=== PATIENT | female | born 1995 | race Caucasian/White ===

== ENCOUNTER 2021-09-11 07:39 | Inpatient (IN) ==
[2021-09-11] MEDS ORDERED: OXYTOCIN 30 UNITS/500 ML BAG IV PRN ×3 (07:57→21:58)
[2021-09-11] MEDS ORDERED: PENICILLIN G POTASSIUM 6 MU in DEXTROSE 5% 250 ML IV ONE (08:20)
--- NOTE | 2021-09-11 08:21 | History & Physical Report ---
Date of Service September 11, 2021 Assessment & Plan (1) Encounter for induction of labor: Plan: 25 year old coming in for induction of labor. -A+, GBS+, Rubella Immune. -Started oxytocin and LR. Giving penicillin for GBS+ status. -Anesthesia consulted for labor pain. -Will continue to monitor heart tracings and progress. Admission and Anticipated Discharge Date Admission Date: September 11, 2021 History of Present Illness Primary Care Provider: NO PCP 42 weeks and 3 days confirmed via LMP. Here for induction of labor. No complications with this . Has been attending OB appointments regularly. Currently taking vitamin and probiotic. Contractions: Denies Fluid leakage: Denies Blood: mild from olvera bulb placement last night. movement: Active Labs: - A+ - Antibody screen: Negative - Hgb: 13.2 - Hct: 40.0 - WBC: 12.24 - Plt: 273 - Rubella: Immune - RPR: Nonreactive - Gonorrhea: Not detected - Chlamydia: Not detected - HIV: Negative - HbSAg: Negative - GBS: Positive - Glucose tolerance x2: 88, 116 Allergies Allergy/AdvReac Type Severity Reaction Status Date / Time No Known Allergies Allergy Verified 09/10/21 19:22 Home Medications Medication Instructions Recorded Confirmed Type prenat.vits,giuliano,rvt-[id number]-otpdc 1 tab PO DAILY 04/07/21 09/11/21 History lactobacillus combination no.4 3 3,000 mmu cells PO DAILY 09/10/21 09/11/21 History billion cell capsule (Probiotic) Patient History Medical History No known health problems Surgical History No history of previous surgery Family History Father Leukemia Mother Heart disease Social History (Updated 09/11/21 @ 08:28 by Rebeca Chirinos RN) Smoking Status: Never smoker Second Hand Exposure: No; Do You Dip or Chew Tobacco: No; Hx Alcohol Use: No Hx Substance Use: No Preferred Language: Russian Communication Ability: Effective Visual Impairment: No Limitations Hearing Ability: Normal Informatics Application Analyst Required: No Beliefs That Will Affect Care: None marital status: Single marital status details: Greta (30) [phone] Current Living Situation: Significant Other Current Living Situation Comment: lives with FOB, 1 dog, 1 cat, fob to change litter current occupational status: unemployed Other Information That Helps Us Care for You: No Feels Safe at Home: Yes Safety Concerns: Feels Safe At This Time Do you think of yourself as: straight/heterosexual Gender Identity: Female Assistive Devices: None OB History Primigravid, as stated above. Review of Systems All systems reviewed & are unremarkable except as noted in HPI & below Physical Exam Physical Exam: General: Alert, oriented. No acute distress. Cardiac: Regular rate and rhythm, no murmurs/rubs/gallops. Respiratory: Clear to auscultation bilaterally a/p, no wheezes/rales/rhonchi. No increased work of breathing. Symmetrical chest rise. No respiratory distress. Pelvic: Dilation 4cm; Effacement 90; Station -[address] Joseph Lower Extremities: No lower extremity edema or swelling. No deep calf pain. Kenneth's negative bilaterally Baseline: 140 Variability: moderate Accelerations: Present Decelerations: Not present Genitourinary: OB Exam Abdomen: + vertex, + estimated weight (6-7 pounds) and + irregular contractions OB Exam Monitor Tracing: + external FHT monitor used, + external uterine monitor used, + category I and + normal FHT variability Results & Data ([facility]) Vital Signs (Past 12 Hours) Vital Signs Pulse BP 09/11/21 07:53 96 H 118/81 Supervising Physician Co-Signing Physician Notes Resident Physician Supervision Note: I interviewed and examined the patient. Discussed with Dr. Mcdaniels and agree with findings and plan as documented in the note. Any exceptions or clarifications are listed here: [None] Documented By: Lena Paz MD, FACOG Resident Activity Tracking Resident Involvement: Resident Care Provided Care Provided: OB Delivery
[2021-09-11 09:06] LABS: Hemoglobin 13.2 g/dL (12.0-16.0); Mean Corpuscular Hemoglobin 31.9 pg (25-34); Mean Corpuscular Volume 96.6 fL (80-100); Platelet Count 273 K/uL (130-400); RDW Coefficient of Variation 14.9 % (11.5-14.5); RDW Standard Deviation 52.7 fL (36.4-46.3); Red Blood Count 4.14 M/uL (4.2-5.4); White Blood Count 12.24 K/uL (4.8-10.8)
[2021-09-11] MEDS: LACTATED RINGER'S 1,000 ML IV PRN ×2 (09:42→15:05)
[2021-09-11] MEDS ORDERED: BUPIVACAINE 0.25% 30 ML VIAL ONE (13:31)
[2021-09-11] MEDS ORDERED: SODIUM CHLORIDE 0.9% INJ 10 ML VIAL ONE (13:31)
[2021-09-11] MEDS ORDERED: ePHEDrine sulfate 50 MG/ML AMP ONE (13:31)
[2021-09-11] MEDS ORDERED: fentaNYL 2MCG/ML ROPIVACAINE 1.25MG/ML 100 ML BAG EPI ONE (13:32)
[2021-09-11] MEDS ORDERED: fentaNYL citrate 100 MCG/2 ML VIAL ONE (13:32)
[2021-09-11] MEDS ORDERED: diphenhydrAMINE 50 MG/ML VIAL IV PRN (14:02)
[2021-09-11] MEDS ORDERED: NALBUPHINE HCL INJ 10 MG/ML AMP IV PRN (14:02)
[2021-09-11] MEDS ORDERED: NALOXONE HCL 0.4 MG/1 ML VIAL/CARP IV PRN (14:02)
[2021-09-11] MEDS ORDERED: NALOXONE HCL 1 MG in SODIUM CHLORIDE 0.9% 1000ML 1,000 ML IV PRN (14:02)
[2021-09-11] MEDS: PENICILLIN G POTASSIUM 3 MU in DEXTROSE 5% 100 ML IV PRN ×2 (14:02→18:10)
[2021-09-11] MEDS ORDERED: fentaNYL 2MCG/ML ROPIVACAINE 1.25MG/ML 100 ML BAG EPI PRN (14:02)
[2021-09-11] MEDS ORDERED: ONDANSETRON INJ 2 MG/ML 2 ML VIAL IV PRN (14:02)
[2021-09-11] MEDS ORDERED: ePHEDrine sulfate 50 MG/ML AMP IV PRN (14:02)
--- NOTE | 2021-09-11 14:02 | Anesthesiology Consultation ---
Date of Service September 11, 2021 Assessment & Plan (1) Encounter for pre-operative examination: Chart Review Chart Review: Patient NOT seen in Pre Admission Testing and Acceptable Risk for Labor Epidural Consults Requested none ASA ASA2 Proposed Anesthesia Anesthesia Type: Labor Epidural Risk / Benefits Reviewed With: PT / POA / Parent / Guardian, Accepts Plan and Informed Consent Obtained History Height/Weight Height: 5 ft 2 in Weight: 73.936 kg Allergies Allergy/AdvReac Type Severity Reaction Status Date / Time No Known Allergies Allergy Verified 09/10/21 19:22 Medications Home Medications Medication Instructions Recorded Confirmed Last Taken prenat.vits,giuliano,myc-fsyt-oqzao 1 tab PO DAILY 04/07/21 09/11/21 09/10/21 19:22 lactobacillus combination no.4 3 3,000 mmu cells PO DAILY 09/10/21 09/11/21 09/10/21 08:00 billion cell capsule (Probiotic) Active Medications Generic Name Dose Route Start Last Admin Trade Name Freq PRN Reason Stop Dose Admin Oxytocin 30 units in 500 mls @ 10 mls/hr 09/11/21 08:08 09/11/21 12:06 Pitocin IV 09/13/21 08:07 0.6 units/hr .Q24H PRN 10 mls/hr Labor Induction/Augmentation Titration Protocol 0.6 UNITS/HR Lactated Ringer's 1,000 mls @ 125 mls/hr 09/11/21 07:57 09/11/21 13:26 Lr IV 09/13/21 07:56 999 mls/hr .Q8H PRN Infusion L&D Protocol Protocol Penicillin G Potassium 3 mu/ 106 mls @ 100 mls/hr 09/11/21 11:11 09/11/21 14:02 Dextrose IV 09/21/21 11:10 100 mls/hr Q4H PRN Administration GBS(+) Until Delivery Past Medical History Medical History (Updated 09/11/21 @ 14:02 by Evans Beck MD) No known health problems Exercise / Class Metabolic Activity II 4-5 Yardwork/Stairs/Walk up hill Past Family History Family History Father Leukemia Mother Heart disease Past Surgical History Surgical History No history of previous surgery Past Anesthesia History No Hx of Anesthesia Complications and No Family Hx of Anesthesia Complications History of PONV No Hx of PONV and No Hx of Motion Sickness Social History Smoking Status: Never smoker Do You Dip or Chew Tobacco: No Hx Alcohol Use: No Hx Substance Use: No substance use type: does not use Physical Exam Vital Signs Last Vital Signs Temp 36.5 C 09/11/21 11:33 Pulse 102 H 09/11/21 13:59 Resp 20 09/11/21 12:45 BP 107/71 09/11/21 13:59 Pulse Ox 99 09/11/21 13:57 ENMT Mouth: no dentition abnormality Thyromental Distance: > or= 3.5 Finger Breadths Mallampati Class: II Neck normal visual inspection Respiratory normal respiratory effort Auscultation: lungs clear to auscultation bilaterally Cardiovascular Rate/Rhythm: regular rate and regular rhythm Psychiatric Orientation: alert Testing Laboratory Results 09/11/21 08:37
[2021-09-11] MEDS ORDERED: ACETAMINOPHEN 325 MG TAB PO PRN ×2 (19:10→21:58)
[2021-09-11] MEDS ORDERED: HYDROCORTISONE ACETATE 25 MG SUPP PR PRN (21:58)
[2021-09-11] MEDS ORDERED: SUPERCREAM 0.870% 15 GM JAR EXT PRN (21:58)
[2021-09-11] MEDS ORDERED: bisacodyL 10 MG SUPP PR PRN (21:58)
[2021-09-11] MEDS ORDERED: BENZOCAINE 20% AER SPR 82.5 GM CAN EXT PRN (21:58)
[2021-09-11] MEDS ORDERED: oxyCODONE/ACETAMINOPHEN 5mg/325mg TAB PO PRN (21:58)
[2021-09-11] MEDS ORDERED: DIPHTHERIA/TETANUS/PERTUSSIS 0.5 ML SYR/VIAL IM ONE (21:58)
--- NOTE | 2021-09-11 22:02 | Delivery Summary ---
Vaginal Delivery Summary Date of Service September 11, 2021 Vaginal Delivery Summary and 1st Degree LAC Patient is a 25-year-old 1 P0 white female who presents for induction of labor because of postterm at 41-3/7 weeks. She had a cervical balloon placed the night prior to her induction. Pitocin augmentation of her labor was begun and she requested epidural analgesia. Membranes were ruptured for minimal amount of fluid. She progressed to full dilation and pushed effectively over intact perineum for delivery of a viable female . A loose nuchal cord x2 was reduced prior to delivering the rest of the infant. The was vigorous upon delivery. Cord was clamped and cut after 1 minute. She was placed on the mother's abdomen for further attention and drying. The placenta was then expressed intact with a three-vessel cord. A first-degree perineal laceration was repaired with 3-0 chromic in the usual fashion. Bilateral superficial labial lacerations were not bleeding and therefore not repaired. EBL was 200 cc. bleeding was controlled with dilute Pitocin. Mother and infant were doing well after delivery. [facility] [place] Vaginal Delivery Charge Delivery Type Details: and 1st Degree LAC
[2021-09-12] MEDS: IBUPROFEN 600 MG TAB PO PRN ×5 (04:42→23:22)
--- NOTE | 2021-09-12 06:30 | Obstetrical Progress Note ---
Date of Service <Rolf Mcdaniels DO - Last Filed: 09/12/21 07:08> September 12, 2021 Assessment & Plan <Rolf Mcdaniels DO - Last Filed: 09/12/21 07:08> (1) Encounter for care and examination after delivery: 25 yo post day 1 from vaginal delivery, doing well. -Continue routine post care. - vital signs reviewed and WNL. (Tmax 37.3) -Blood type A+, GBS +, Rubella Immune -Encourage ambulation, monitor and control pain with Motrin, tylenol PRN, resume regular diet, monitor lochia. -encourage breast feeding. -hemoglobin 13.1 <Lena Paz MD, FACOG - Last Filed: 09/12/21 07:26> (1) Encounter for care and examination after delivery: Subjective <Rolf Mcdaniels DO - Last Filed: 09/12/21 07:08> Ambulation: ambulating normally Voiding: no voiding problems Passing Gas:: Yes Diet Tolerance:: regular diet Lochia:: Small Feeding Type:: breast feeding Current Pain Level(1-10): 0 Review of Systems Denies fever, chills, sweats Denies shortness of breath, difficulty breathing, chest pain, palpitations, chest pressure. Denies breast pain. Denies dysuria. Denies headache or changes in vision Physical Exam <Rolf Mcdaniels DO - Last Filed: 09/12/21 07:08> General: Alert, oriented. No acute distress. Uterus: Uterine fundus firm, palpable at umbilicus. Lower Extremities: No lower extremity edema or swelling. No deep calf pain. Kenneth's negative bilaterally Results & Data ([facility]) <Rolf Mcdaniels DO - Last Filed: 09/12/21 07:08> Vital Signs (Past 12 Hours) Vital Signs Temp Pulse Pulse Resp BP BP Pulse Ox 09/12/21 04:25 37.1 C 98 H 16 132/95 98 09/12/21 00:50 36.7 C 110 H 17 117/80 97 09/12/21 00:05 109 H 118/69 09/11/21 23:50 129 H 112/65 09/11/21 23:35 126 H 123/83 09/11/21 23:20 126 H 123/82 09/11/21 23:05 123 H 121/83 09/11/21 22:50 98 H 117/77 09/11/21 22:35 104 H 118/78 09/11/21 22:20 107 H 137/74 09/11/21 22:05 105 H 127/72 09/11/21 21:50 114 H 119/65 09/11/21 21:35 108 H 115/65 09/11/21 21:22 113 H 97 09/11/21 21:17 118 H 96 09/11/21 21:12 119 H 96 09/11/21 21:07 123 H 97 09/11/21 21:05 109 H 121/75 09/11/21 21:02 144 H 98 09/11/21 20:57 128 H 97 09/11/21 20:52 121 H 97 09/11/21 20:50 129 H 115/67 09/11/21 20:47 134 H 97 09/11/21 20:42 119 H 97 09/11/21 20:37 114 H 95 09/11/21 20:35 113 H 108/65 09/11/21 20:34 36.7 C 18 09/11/21 20:32 113 H 95 09/11/21 20:27 111 H 95 09/11/21 20:25 117 H 94 09/11/21 20:22 116 H 95 09/11/21 20:20 118 H 100/57 L 09/11/21 20:17 116 H 94 09/11/21 20:12 117 H 97 09/11/21 20:07 136 H 96 09/11/21 20:06 126 H 127/77 09/11/21 20:02 121 H 96 09/11/21 19:57 120 H 97 09/11/21 19:52 114 H 96 09/11/21 19:50 126 H 117/76 09/11/21 19:47 115 H 97 09/11/21 19:42 121 H 99 09/11/21 19:37 131 H 98 09/11/21 19:35 125 H 115/81 09/11/21 19:32 128 H 99 09/11/21 19:27 109 H 99 09/11/21 19:22 128 H 99 09/11/21 19:20 131 H 113/81 09/11/21 19:17 123 H 98 09/11/21 19:12 114 H 98 09/11/21 19:07 120 H 98 09/11/21 19:05 131 H 125/83 09/11/21 19:02 111 H 98 09/11/21 18:57 110 H 98 09/11/21 18:52 116 H 98 09/11/21 18:50 121 H 117/75 09/11/21 18:47 121 H 98 09/11/21 18:42 123 H 97 09/11/21 18:37 113 H 97 09/11/21 18:35 109 H 111/70 09/11/21 18:32 120 H 96 <Lena Paz MD, FACOG - Last Filed: 09/12/21 07:26> Co-Signing Physician Notes Resident Physician Supervision Note: I interviewed and examined the patient. Discussed with Dr. Mcdaniels and agree with findings and plan as documented in the note. Any exceptions or clarific ations are listed here: [None] Documented By: Lena Paz MD, FACOG Resident Activity Tracking <Rolf Mcdaniels DO - Last Filed: 09/12/21 07:08> Resident Involvement: Resident Care Provided Care Provided: OB Delivery
[2021-09-12 06:43] LABS: Hematocrit (blood only) 39.4 % (37-47); Hemoglobin 13.1 g/dL (12.0-16.0); Mean Corpuscular Hgb Conc 33.2 g/dL (32-36); Mean Corpuscular Volume 96.1 fL (80-100); Mean Platelet Volume 11.1 fL (7.4-10.4); Platelet Count 262 K/uL (130-400); RDW Coefficient of Variation 14.8 % (11.5-14.5); RDW Standard Deviation 52.4 fL (36.4-46.3); White Blood Count 20.03 K/uL (4.8-10.8)
--- NOTE | 2021-09-12 07:50 | Anesthesia Procedure Note ---
Date of Service September 12, 2021 Anesthesia Post Epidural Note Vital Signs Vital Signs: Temp Pulse Resp BP Pulse Ox 98.8 F 98 H 16 132/95 98 09/12/21 04:25 09/12/21 04:25 09/12/21 04:25 09/12/21 04:25 09/12/21 04:25 Pain Intensity Abdomen: Pain Intensity: 0 Back: Pain Intensity: 4 Notes Mental Status: alert / awake / arousable and participated in evaluation Nausea / Vomiting: adequately controlled Pain: adequately controlled Airway Patency, RR, SpO2: stable & adequate BP & HR: stable & adequate Hydration State: stable & adequate Neuraxial Anesthesia: was administered and sensory block is resolving Anesthetic Complications: no major complications apparent and Pt Satisfied with anesthetic care Epidural: Removed without complications and With tip intact
[2021-09-12] MEDS: PRENATAL VITAMIN 1 TAB PO SCH (08:35)
[2021-09-12] MEDS: DOCUSATE SODIUM 100 MG CAP PO SCH ×2 (08:35→19:23)
[2021-09-12] MEDS ORDERED: bisacodyL 5 MG TABEC PO SCH (20:00)
[2021-09-13 06:44] LABS: Hematocrit (blood only) 35.5 % (37-47); Hemoglobin 11.6 g/dL (12.0-16.0)
--- NOTE | 2021-09-13 08:10 | Obstetrical Progress Note ---
Date of Service September 13, 2021 Assessment & Plan (1) Encounter for care and examination after delivery: 25 yo post day 1 from vaginal delivery, doing well. Stable for discharge. Subjective Ambulation: ambulating normally Voiding: no voiding problems Passing Gas:: Yes Diet Tolerance:: regular diet Lochia:: Moderate Feeding Type:: breast feeding Physical Exam Constitutional WD/WN, vitals as above Respiratory normal respiratory effort; no respiratory distress and no labored breathing Gastrointestinal (Abdomen) Inspection/Auscultation: abdomen normal to inspection; abdomen not distended Percussion/Palpation: abdomen soft; abdomen nontender, no guarding and abdomen not rigid Genitourinary OB Exam Abdomen: + fundal height Fundus: + firm and + relation to umbilicus (Below); not tender or not boggy Results & Data ([facility]) Vital Signs (Past 12 Hours) Vital Signs Temp Pulse Resp BP Pulse Ox 09/12/21 23:00 36.5 C 84 18 127/85 96
[2021-09-13] MEDS: DOCUSATE SODIUM 100 MG CAP PO SCH (08:20)
[2021-09-13] MEDS: IBUPROFEN 600 MG TAB PO PRN ×2 (08:20→15:33)
[2021-09-13] MEDS: PRENATAL VITAMIN 1 TAB PO SCH (08:21)
== END 2021-09-13 20:00 | disposition home or self-care (01) | DRG 807 ==
LOC: 4S1 07:39 → 4S2 09-12 00:25

== ENCOUNTER 2024-07-29 04:07 | Inpatient (IN) ==
[2024-07-29] MEDS ORDERED: OXYTOCIN 30 UNITS/NSS 30 UNITS/500 ML BAG IV PRN ×2 (05:02→14:07)
[2024-07-29] MEDS ORDERED: LIDOCAINE 1% LOCAL 20 ML VIAL INFIL PRN (05:02)
[2024-07-29] MEDS: LACTATED RINGER'S 1,000 ML IV PRN (05:16)
--- NOTE | 2024-07-29 05:29 | History & Physical Report ---
Date of Service July 29, 2024 Assessment & Plan (1) 40 weeks gestation of : (2) Normal labor: Plan admit for labor. fetus category one. gbs neg. Offered arom, declines. would like to go natural. expectant management. anticipate . Admission and Anticipated Discharge Date Admission Date: July 29, 2024 History of Present Illness Chief Complaint: contractions Primary Care Provider: NO PCP Patient is a 28yowf with iup at 40 1/7 who presents to labor and delivery noting worsening contractions since 8pm. no lof/vb. +fm. 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 *FOB negative - see task from 01/24/24 IOL post-dates per patient request 08/07 OB Labs: Blood Type A Positive 12/30/23 Antibody Screen NEGATIVE 12/30/23 Hgb 11.8 g/dl (12.0-16.0) L 05/04/24 Hct 35.5 % (37.0-47.0) L 05/04/24 MCV 88.6 fL (80.0-100.0) 12/30/23 Plt Count 332 K/uL (130-400) 12/30/23 Rubella IgG Antibody Immune (Immune) 12/30/23 RPR Nonreactive (Nonreactive) 12/30/23 Hep Bs Antigen Neg (Neg) 04/08/21 Hep Bs Antigen NON-REACTIVE (NON-REACTIVE) 12/30/23 Hepatitis C Ab (EIA) NON-REACTIVE (NON-REACTIVE) 12/30/23 HIV 1&2 Ab/P24 Ag 4thGn Neg (Neg) 04/08/21 HIV (1&2) Ag & Ab Conf NON-REACTIVE (NON-REACTIVE) 12/30/23 Glucose 1 Hr 50 gm 116 mg/dl (70-130) 05/04/24 OB Optional Labs: Chlamydia trachomatis RNA Not Detected (NotDetected) 12/30/23 Neisseria gonorrhoeae RNA Not Detected (NotDetected) 12/30/23 Labs Reviewed: 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; FOB negative prior screening--mln cfdna-low risk--mln msafp declines smp gbs neg Allergies Allergy/AdvReac Type Severity Reaction Status Date / Time No Known Allergies Allergy Verified 07/29/24 04:33 Home Medications Medication Instructions Recorded Confirmed Type prenat.vits,giuliano,ymx-ztln-wkkti 1 tab PO DAILY 04/07/21 07/29/24 History omeprazole 20 mg capsule,delayed 20 mg PO DAILY 06/15/24 07/29/24 History release breast pump #1 ea 07/13/24 07/27/24 Rx Patient History Medical History Supervision of normal intrauterine in primigravida Varicella vaccination Encounter for induction of labor No known health problems Surgical History No history of previous surgery Family History Father Leukemia Mother Heart disease Aunt Breast cancer Ovarian cancer Denies family history of Prostate cancer Myocardial infarction Colorectal cancer Social History Smoking Status: Never smoker Second Hand Exposure: No; Do You Dip or Chew Tobacco: No; Hx Alcohol Use: No Hx Substance Use: No Preferred Language: Zambian Communication Ability: Effective Visual Impairment: No Limitations Hearing Ability: Normal Sheet Manager Required: No Beliefs That Will Affect Care: None marital status: marital status details: Greta Villar(32) [phone] Current Living Situation: Spouse Current Living Situation Comment: House with and kids current occupational status: unemployed Other Information That Helps Us Care for You: No Feels Safe at Home: Yes Safety Concerns: Feels Safe At This Time Do you think of yourself as: straight/heterosexual Gender Identity: Female Assistive Devices: None OB History Past Pregnancies Del. Date GA wks Lbr Lgth wt Sex Type del Anes Place Del Prov ? Comment 09/11/21 41 7lb 4.7oz F Epi dural [facility] Dr. Joseph No 01/03/23 40 8lbs 8 oz F Epi dural Other [facility] N 2 vessel umbilical cord , jaundice Physical Exam Constitutional: WD/WN, vitals as above Gastrointestinal (Abdomen): soft, gravid, nt Psychiatric: A+Ox3, euthymic affect Genitourinary: cx--580/-1 per nursing toco--qq2-5min efm--130s with mod variabitliy, accels to 160s, no decels Results & Data Vital Signs (Past 12 Hours) Vital Signs Temp Pulse Resp BP O2 Del Method 07/29/24 04:35 36.6 C 18 Room Air 07/29/24 04:28 36.6 C 112 H 18 109/79 Coding Level of Care Code None Diagnoses 40 weeks gestation of Z3A.40 Normal labor O80; Z37.9
[2024-07-29 05:45] LABS: Hematocrit (blood only) 33.1 % (37.0-47.0); Hemoglobin 10.5 g/dl (12.0-16.0); Mean Corpuscular Hemoglobin 28.2 pg (25.0-34.0); Mean Corpuscular Hgb Conc 31.7 g/dL (32.0-36.0); Mean Platelet Volume 10.8 fL (9.4-12.4); Platelet Count 318 K/uL (130-400); RDW Coefficient of Variation 14.2 % (11.5-14.5); RDW Standard Deviation 45.9 fL (36.4-46.3); Red Blood Count 3.72 M/uL (4.20-5.40); White Blood Count 14.99 K/ul (4.8-10.8)
[2024-07-29] MEDS ORDERED: SODIUM CHLORIDE 0.9% PF INJ 10 ML VIAL ONE (07:44)
[2024-07-29] MEDS ORDERED: ePHEDrine sulfate 50 MG/ML AMP ONE (07:44)
--- NOTE | 2024-07-29 08:58 | Anesthesiology Consultation ---
Date of Service July 29, 2024 Assessment & Plan Chart Review Chart Review: Acceptable Risk for Surgery and Patient NOT seen in Pre Admission Testing Consults Requested none ASA ASA2 Proposed Anesthesia Anesthesia Type: Labor Epidural and CSE Risk / Benefits Reviewed With: PT / POA / Parent / Guardian, Accepts Plan and Informed Consent Obtained History Height/Weight Height: 5 ft 2 in Weight: 67.585 kg Allergies Allergy/AdvReac Type Severity Reaction Status Date / Time No Known Allergies Allergy Verified 07/29/24 04:33 Medications Home Medications Medication Instructions Recorded Confirmed Last Taken prenat.vits,giuliano,mfa-vhwq-romvw 1 tab PO DAILY 04/07/21 07/29/24 09/10/21 19:22 omeprazole 20 mg capsule,delayed 20 mg PO DAILY 06/15/24 07/29/24 07/28/24 release breast pump #1 ea 07/13/24 07/27/24 Unknown Active Medications Generic Name Dose Route Start Last Admin Trade Name Freq PRN Reason Stop Dose Admin Lactated Ringer's 1,000 mls @ 125 mls/hr 07/29/24 05:02 07/29/24 07:50 Lr IV 07/31/24 05:01 125 mls/hr .Q8H PRN Administration L&D Protocol Protocol NPO Date Last Intake of Fluids: 07/29/24 Time Last Intake of Fluids: 07:00 Date Last Intake of Solids: 07/29/24 Time Last Intake of Solids: 01:00 Past Medical History Medical History Supervision of normal intrauterine in primigravida Varicella vaccination Encounter for induction of labor No known health problems gerd anemia IRBBB Exercise / Class Metabolic Activity II 4-5 Yardwork/Stairs/Walk up hill Past Family History Family History Father Leukemia Mother Heart disease Aunt Breast cancer Ovarian cancer Denies family history of Prostate cancer Myocardial infarction Colorectal cancer Past Surgical History Surgical History No history of previous surgery Past Anesthesia History No Hx of Anesthesia Complications and No Family Hx of Anesthesia Complications History of PONV No Hx of PONV and No Hx of Motion Sickness Social History Smoking Status: Never smoker Do You Dip or Chew Tobacco: No Hx Alcohol Use: No Hx Substance Use: No substance use type: does not use Physical Exam Vital Signs Last Vital Signs Temp 36.6 C 07/29/24 04:35 Pulse 112 H 07/29/24 08:53 Resp 18 07/29/24 04:35 BP 113/78 07/29/24 07:36 Pulse Ox 98 07/29/24 08:53 O2 Del Method Room Air 07/29/24 04:35 Constitutional + obese; no acute distress ENMT Mouth: no dentition abnormality Thyromental Distance: < 3.5 Finger Breadths Mallampati Class: II Neck normal visual inspection and trachea midline; neck extension not limited Respiratory normal respiratory effort Auscultation: lungs clear to auscultation bilaterally Cardiovascular Rate/Rhythm: regular rate and regular rhythm Heart Sounds: no murmur Vessels: no carotid bruit Musculoskeletal Spine: lumbar spine normal to inspection; normal cervical ROM and no pain with cervical ROM Extremities: full ROM of extremities Neurologic moves all extremities Motor/Sensory: no sensory deficit Psychiatric Orientation: alert and oriented x 3 Testing Laboratory Results 07/29/24 05:21
[2024-07-29] MEDS: ePHEDrine sulfate 50 MG/ML AMP IV PRN (09:26)
[2024-07-29] MEDS ORDERED: LIDOCAINE 2% MPF LOCAL 5 ML VIAL EPI PRN (09:26)
[2024-07-29] MEDS ORDERED: BUPIVACAINE 0.25% PF 30 ML VIAL EPI STA (09:26)
[2024-07-29] MEDS ORDERED: fentaNYL citrate PF 100 MCG/2 ML VIAL EPI PRN (09:26)
[2024-07-29] MEDS ORDERED: PROMETHAZINE 6.25 MG/50.25 ML BAG IV PRN (09:26)
[2024-07-29] MEDS ORDERED: NALOXONE HCL 0.4 MG/1 ML VIAL/CARP IV PRN (09:26)
[2024-07-29] MEDS ORDERED: ROPIVACAINE 0.5% PF 5 MG/ML 20 ML VIAL EPI PRN (09:26)
[2024-07-29] MEDS ORDERED: fentaNYL citrate PF 100 MCG/2 ML VIAL EPI STA (09:26)
[2024-07-29] MEDS ORDERED: SODIUM CHLORIDE 0.9% PF INJ 10 ML VIAL EPI PRN (09:26)
[2024-07-29] MEDS ORDERED: BUPIVACAINE 0.25% PF 30 ML VIAL EPI PRN (09:26)
[2024-07-29] MEDS ORDERED: NALBUPHINE HCL INJ 10 MG/ML AMP IV PRN (09:26)
[2024-07-29] MEDS ORDERED: fentANYL 2 MCG/ML BUPIVacaine 0.125%-NSS 100ML BAG EPI PRN (09:26)
[2024-07-29] MEDS ORDERED: SODIUM CHLORIDE 0.9% PF INJ 10 ML VIAL EPI STA (09:26)
[2024-07-29] MEDS ORDERED: NALOXONE HCL 1 MG in SODIUM CHLORIDE 0.9% 1,000 ML IV PRN (09:26)
[2024-07-29] MEDS ORDERED: ONDANSETRON INJ 2 MG/ML 2 ML VIAL IV PRN (09:26)
[2024-07-29] MEDS ORDERED: LIDOCAINE 2%/EPINEPHRINE 1:200,000 20 ML PF EPI STA (09:26)
[2024-07-29] MEDS ORDERED: diphenhydrAMINE 50 MG/ML VIAL IV PRN (09:26)
[2024-07-29] MEDS: BUPIVACAINE 0.25% PF 30 ML VIAL ONE (09:30)
[2024-07-29] MEDS: fentANYL 2 MCG/ML BUPIVacaine 0.125%-NSS 100ML BAG ONE (09:30)
[2024-07-29] MEDS: LIDOCAINE 2%/EPINEPHRINE 1:200,000 20 ML PF ONE (09:30)
[2024-07-29] MEDS: fentaNYL citrate PF 100 MCG/2 ML VIAL ONE (09:31)
[2024-07-29] MEDS: OXYTOCIN 30 UNITS/NSS 30 UNITS/500 ML BAG IV PRN (10:21)
--- NOTE | 2024-07-29 10:26 | Labor Progress Brief Note ---
Date of Service July 29, 2024 Subjective comfortable Assessment & Plan (1) Normal labor: (2) 40 weeks gestation of : Plan arom and pitocin. fetus category one. anticipate . Admission and Anticipated Discharge Date Admission Date: July 29, 2024 Physical Exam Physical Exam: cx--/-1 arom--clear efm--150s wtih mod variability, accels to the 180s, had decel with drop of bp after the epidural. Resolved with treatment toco--spaced since epidural Results & Data Vital Signs (Past 12 Hours) Vital Signs Temp Pulse Resp BP Pulse Ox O2 Del Method 07/29/24 10:23 116 H 107/73 98 07/29/24 10:18 133 H 99 07/29/24 10:13 105 H 99 07/29/24 10:10 109 H 110/69 07/29/24 10:08 113 H 98 07/29/24 10:03 109 H 98 07/29/24 09:58 125 H 98 07/29/24 09:53 126 H 105/73 98 07/29/24 09:48 129 H 98 07/29/24 09:43 117 H 100 07/29/24 09:38 123 H 106/71 98 07/29/24 09:33 112 H 97 07/29/24 09:32 96 H 129/78 07/29/24 09:30 126 H 101/68 07/29/24 09:28 97 07/29/24 09:28 134 H 07/29/24 09:28 126 H 84/50 L 07/29/24 09:27 123 H 79/47 L 07/29/24 09:25 80 58/31 L 07/29/24 09:24 112 H 69/34 L 07/29/24 09:23 109 H 99 07/29/24 09:22 115 H 96/61 L 07/29/24 09:20 91 H 99/60 L 07/29/24 09:18 106 H 99 07/29/24 09:15 96 H 114/79 07/29/24 09:13 101 H 98 07/29/24 09:08 105 H 99 07/29/24 09:03 122 H 98 07/29/24 08:58 97 H 98 07/29/24 08:53 112 H 98 07/29/24 08:48 107 H 98 07/29/24 08:43 97 H 98 07/29/24 08:38 104 H 98 07/29/24 08:33 252 H 99 07/29/24 07:36 105 H 113/78 07/29/24 04:35 36.6 C 18 Room Air 07/29/24 04:28 36.6 C 112 H 18 109/79 Coding Level of Care Code None Diagnoses Normal labor O80; Z37.9 40 weeks gestation of Z3A.40
--- NOTE | 2024-07-29 13:37 | Delivery Summary ---
Vaginal Delivery Summary Date of Service July 29, 2024 Vaginal Delivery Summary Pre-operative Diagnosis: at 40 weeks active labor Post-operative Diagnosis: same manual extraction of placenta Procedure: epidural arom manual extraction of the placenta EBL: 66cc Anesthesia: epidural Procedure: The patient presented to labor and delivery in active labor. She underwent and epidural then arom and pitocin augmentation. The patient pushed for two contractions to deliver a viable male infant in bina position. The nose and mouth were bulb suctioned on the perineum and the rest of the infant was then delivered without difficulty. The baby was vigorous. The nose and mouth were again bulb suctioned and the was placed in the maternal abdomen for drying and attention. Cord was clamped and cut at one minute of life. Cord blood and segment obtained. Placenta was manually extracted after 15 minutes. Uterus then swept and no pocs were noted. Cervix/sulci/rectum/perineum were intact. Hemostasis obtained with dilute pitocin and fundal massage. Apgars were []. Mother and baby doing well at the end of the delivery. [facility] Vaginal Delivery Charge Delivery Type Details:
[2024-07-29] MEDS ORDERED: oxyCODONE/ACETAMINOPHEN 5mg/325mg TAB PO PRN (14:07)
[2024-07-29] MEDS ORDERED: HYDROCORTISONE ACETATE 25 MG SUPP PR PRN (14:07)
[2024-07-29] MEDS ORDERED: BENZOCAINE 20% SPRY 85 APPLN/85 GM CAN EXT PRN (14:07)
[2024-07-29] MEDS ORDERED: ACETAMINOPHEN 325 MG TAB PO PRN (14:07)
[2024-07-29] MEDS ORDERED: bisacodyL 10 MG SUPP PR PRN (14:07)
[2024-07-29] MEDS ORDERED: DIPHTHER/TETAN/PERTUS Vaccine (Tdap, Adol/Adult) 0.5mL IM ONE (14:07)
--- NOTE | 2024-07-29 14:24 | Anesthesia Procedure Note ---
Date of Service July 29, 2024 Anesthesia Post Epidural Note Vital Signs Vital Signs: Temp Pulse Resp BP Pulse Ox O2 Del Method 36.6 C 88 16 112/70 96 Room Air 07/29/24 11:50 07/29/24 14:08 07/29/24 11:50 07/29/24 14:08 07/29/24 13:23 07/29/24 04:35 Pain Intensity Abdomen: Pain Intensity: 0 Notes Mental Status: alert / awake / arousable Nausea / Vomiting: adequately controlled Pain: adequately controlled Airway Patency, RR, SpO2: stable & adequate BP & HR: stable & adequate Hydration State: stable & adequate Neuraxial Anesthesia: was administered and sensory block is resolving Anesthetic Complications: no major complications apparent Epidural: Removed without complications and With tip intact
[2024-07-29] MEDS: ceFAZolin 1000MG 1,000 MG/7.5 ML SYR IV ONE (14:48)
[2024-07-29] MEDS: IBUPROFEN 600 MG TAB PO PRN (15:41)
[2024-07-29] MEDS: DOCUSATE SODIUM 100 MG CAP PO SCH (20:18)
[2024-07-30 05:50] LABS: Hematocrit (blood only) 28.2 % (37.0-47.0); Hemoglobin 9.1 g/dl (12.0-16.0)
--- NOTE | 2024-07-30 06:50 | Obstetrical Progress Note ---
Date of Service July 30, 2024 Assessment & Plan (1) Encounter for assessment: Plan: Patient is PPD 1 s/p and doing well - Eating well, voiding well, ambulating well - vitals reviewed and within normal limits - pain well controlled with analgesics - OOB, ambulation, diet progression as tolerated - Blood type: A+, GBS neg, rubella immune - Plan to discharge today - After discharge, 6 week follow up with OB Admission and Anticipated Discharge Date Admission Date: July 29, 2024 Supervising Physician Co-Signing Physician Notes Resident Physician Supervision Note: I interviewed and examined the patient. Discussed with Dr. Anderson and agree with findings and plan as documented in the note. Any exceptions or clarifications are listed here: Doing well. Would like d/c home today. Instructions given. Documented By: Dagmar Watts MD, FACOG Subjective 28 yo post- day 1 s/p Ambulation: ambulating normally Voiding: no voiding problems Passing Gas:: Yes Diet Tolerance:: regular diet Lochia:: Small Feeding Type:: breast feeding Current Pain Level:2-3/10 Resting comfortably this AM in NAD. Denies QUIROS, CP, SOB, N/V/D, LE pain/swelling. Physical Exam Physical Exam: General: patient resting comfortably, NAD, non-toxic in appearance, answers questions appropriately. Skin: warm, dry, intact HEENT: NC/AT, anicteric sclera, conjunctiva without injection, moist mucus membranes. Heart: +S1/S2, regular, no m/r/g Lungs: equal air entry bilaterally, no rales/rhonchi/wheezes Abd: +BS, soft, NT/ND, uterine fundus firm at umbilicus Ext: warm, no clubbing/cyanosis or edema, Kenneth's neg. Neuro: nonfocal, speech intact, no facial droop, moving all extremities. Results & Data Vital Signs (Past 12 Hours) Vital Signs Temp Pulse Resp BP O2 Del Method 07/30/24 03:05 36.6 C 83 16 118/79 Room Air 07/29/24 23:48 36.7 C 80 14 108/65 Room Air 07/29/24 20:15 36.7 C 90 16 121/82 Room Air Resident Activity Tracking Resident Involvement: Resident Care Provided Care Provided: OB Delivery (1) Encounter for assessment visit type: exam and care immediately after delivery Qualified Code(s): Z39.0 - Encounter for care and examination of mother immediately after delivery
[2024-07-30] MEDS: PRENATAL VITAMIN 1 TAB PO SCH (08:11)
[2024-07-30 13:33] VITALS: BP 122/87; PULSE 82; RESP 18; TEMP 98.1; O2SAT 99
[2024-07-30] MEDS: bisacodyL 5 MG TABEC PO SCH (19:38)
== END 2024-07-30 20:05 | disposition home or self-care (01) | DRG 807 ==
LOC: OPB 04:07 → 4S1 04:15 → 4E2 17:11